=== PATIENT | female | born 1970 | race African-American/Black ===

== ENCOUNTER 2020-08-18 10:46 | Inpatient (IN) | payer OTHER ==
[~2020-08-18] VITALS: Ht 177.8 cm; Wt 81.6 kg
[~2020-08-18 10:46] MED LIST: ABILIFY 5 MG TAB5 M1 PO; AVELOX400 MG PO; BACTRIM DS TAB1 EACH; COMBIVIR TABLE1 EACH; DARVOCET-N 1001 EAC1 PO; IBUPROFEN 800800 MG PO; KEFLEX500 MG PO; NORCO 5-325 TA1 EACH PO; PAROXETINE HCL40 MG; PERCOCET 5-3251 EACH PO; PROAIR HFA8.5 GM IH; REMERON15 MG; RESTORIL30 MG; SUSTIVA600 MG; TYLENOL W/CODEI1 TA2 PO; XANAX XR2 MG
[2020-08-18 11:14] VITALS: BP 146/93
[2020-08-18 11:34] LABS: ABSOLUTE NEUTROPHILS 5.8 thou/uL (1.4-8.2); EOSINOPHILS 0.1 % (0.0-3.0); HEMATOCRIT 35.4 % (37.0-47.0); HEMOGLOBIN 12.3 gm/dL (12.0-15.0); LYMPHOCYTES 25.3 % (24.0-44.0); MCH 36.8 pg (26.0-34.0); MCHC 34.6 g/dL (28.0-37.0); MCV 106.1 fL (80.0-100.0); MONOCYTES 8.2 % (1.0-8.0); PLATELET COUNT 281 thou/uL (150-400); POLYS 65.4 % (36.0-66.0); RBC 3.33 mil/uL (4.20-5.00); RDW 13.1 % (10.5-14.5); WBC 8.8 thou/uL (4.0-11.0)
[2020-08-18 11:38] LABS: POTASSIUM 3.7 mmol/L (3.5-5.1)
[2020-08-18 11:44] LABS: ALBUMIN 3.6 g/dL (3.4-5.0); TOTAL BILIRUBIN 0.6 mg/dL (0.2-1.0); TOTAL PROTEIN 7.8 g/dL (6.4-8.2)
[2020-08-18 12:45] LABS: URINE BILIRUBIN NEGATIVE (Negative); URINE BLOOD 2+ (Negative); URINE CLARITY CLEAR; URINE COLOR YELLOW; URINE GLUCOSE-RANDOM* NEGATIVE (Negative); URINE KETONES TRACE (Negative); URINE LEUKOCYTES-REFLEX NEGATIVE (Negative); URINE NITRITE-REFLEX NEGATIVE (Negative); URINE PROTEIN (DIPSTICK) 2+ (Negative)
[2020-08-18 13:12] LABS: BACTERIA-REFLEX 1-9 Few /HPF (None Seen); CASTS None Seen /LPF (None Seen); MUCUS 0-3 Light strn/LPF (None Seen); SQUAMOUS 4-10 Moderate /LPF (0-3); URINE WBC-REFLEX 0-5 Rare /HPF (0-5)
[2020-08-18 13:13] LABS: CRYSTALS None Seen /LPF (None Seen)
--- NOTE | 2020-08-18 13:45 | EKG ---
[place] [address] [facility] [place] [address] ELECTROCARDIOGRAM REPORT Name: RASHAADPORFIRIO Lucio [facility] [id number] Admission: 08/18/20 Attend Phys: Discharge: Date of : 72 Report #: [id number] [facility] ED Test Date: 2020-08-18 Test Time: 10:57:02 Pat Name: PORFIRIO NEIL Department: Room: Gender: F Cloud Consultant: : 1970 Requested By: Ary Cervantes Order Number: [id number] MD: Chaka Story Measurements Intervals [place] Rate: 100 P: 51 MN: 151 QRS: 2 QRSD: 88 T: 40 QT: 325 QTc: 420 Interpretive Statements Sinus tachycardia RSR' in V1 or V2, probably normal variant Compared to ECG 04/21/2011 20:15:49 No significant changes Electronically Signed On 08-18-2020 13:44:55 CDT by Chaka Story [email or web address] <ELECTRONICALLY SIGNED> By: Chaka Story MD, [facility] 08/18/20 1344 [id number] [id number] Chaka Story MD, FACC /EPI
[2020-08-18 15:00] VITALS: BP 145/103
[2020-08-18 15:09] VITALS: BP 145/103
[2020-08-18 15:15] VITALS: BP 133/81
[2020-08-18 15:30] VITALS: BP 145/103
[2020-08-18] MEDS ORDERED: BIKTARVY 50-201 EACH PO (15:41)
[2020-08-18] MEDS ORDERED: MELATONIN10 M2 PO (15:42)
--- NOTE | 2020-08-18 17:03 | NUR ---
Pt transferred to unit from ED approx 1530. A&ox4. C/o non-cardiac chest pain. Provider notified and new orders noted. Admission completed. On 2L O2. Ptr is homeless at this time. Pt's mother listed as authorized contact. Call light within reach. Will continue to monitor.
[2020-08-18 19:29] VITALS: BP 179/101
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
[2020-08-19 05:15] VITALS: BP 136/84
[2020-08-19 06:14] LABS: HEMATOCRIT 32.9 % (37.0-47.0); HEMOGLOBIN 11.3 gm/dL (12.0-15.0); MCH 36.8 pg (26.0-34.0); MCHC 34.5 g/dL (28.0-37.0); MCV 106.5 fL (80.0-100.0); RBC 3.09 mil/uL (4.20-5.00); RDW 13.4 % (10.5-14.5); WBC 13.6 thou/uL (4.0-11.0)
[2020-08-19 08:18] VITALS: BP 144/92
--- NOTE | 2020-08-19 12:38 | NUR ---
Assumed care of pt at 0700. Pt a&ox4. C/o non-cardiac chest pain. Prn pain meds administered per pt request. IV antibiotics infusing. 2L O2. Home meds brought in by pt's family. Call light within reach. Will continue to monitor.
--- NOTE | 2020-08-19 13:49 | NUR ---
assessment: CM REVIEWED CHART AND MET WITH PT AT THE BEDSIDE. PT IS ALERT AND ORIENTED X4. PT WAS ADMITTED DUE TO PNEUMONIA AND IS CURRENTLY ON IV ANBX. PTS CULTURES ARE CURRENTLY PENDING. PT IS ON 2L OXYGEN BUT NORMALLY DOES NOT WEAR IT. (PT IS UNABLE TO GO TO [facility]ESS [facility] IF SHE IS REQUIRING OXYGEN). PT HAS PAST HX OF HIV AND REPORTS SHE GETS ALL HER FOLLOW UP CARE AT [facility] AND SEES DR. SHAMIKA ALFARO. PT REPORTS BEING FULLY INDEPENDENT WITH ADLS AND AMBULATION. PT REPORTS SHE IS NEEDING A PLACE TO STAY AT DISCHARGE. PT REPORTS SHE WAS JUST STAYING ANYWHERE SHE COULD PRIOR TO ADMISSION. CM DISCUSSED WITH PATIENT AND CAN MAKE ATTEMP TO GET HER INTO A [facility]ELESS [facility] AND PT IS AGREEABLE. CM CONTACTED [facility] IN ATTEMPTS TO SECURE A BED FOR PATIENT. PER STAFF PT HAS TO BE CLEARED BY THEIR RN JENAE GIPSON PRIOR TO ADMITTING THERE. CM SPOKE WITH KATHERINE EMANUEL AND PT IS CLEARED TO COME THERE IF A BED IS AVAILABLE AT TIME OF DISCHARGE. ZACH SPOKE WITH STAFF WHO REPORTS SHE CANNOT RESERVE A BED UNTIL THE DAY OF DISCHARGE AND THE BEST TIME TO CALL IS 0730. INTAKE FOR NEW PATIENTS IS USUALLY BETWEEN 1300-3PM. PT ALSO HAS A HX OF DRUG USE. PT DENIES ANY NEED FOR DRUG ABUSE RESOURCES AT THIS TIME. ONCE PATIENT IS MEDICALLY STABLE FOR DISCHARGE CM MUST CONTACT HELDER AT [facility] TO SEE IF BED IS OPEN ([phone]).
[2020-08-19 17:30] VITALS: BP 142/91
[2020-08-19] MEDS ORDERED: HYDROXYZINE HCL50 MG PO (19:14)
[2020-08-19] MEDS ORDERED: REMERON30 MG PO (19:14)
[2020-08-19] MEDS ORDERED: LATUDA60 MG PO (19:15)
[2020-08-19] MEDS ORDERED: SERTRALINE HCL100 MG PO (19:17)
[2020-08-19] MEDS ORDERED: MELATONIN10 M3 PO (19:18)
[2020-08-19] MEDS ORDERED: CELECOXIB200 MG PO (19:19)
[2020-08-19 19:44] VITALS: BP 144/93
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
--- NOTE | 2020-08-20 00:59 | NUR ---
PT ALERT AND ORIENTED X 4. 02 ON AT 2L PER NC. PT C/O NON-CARDIAC CHEST PAIN. MORPHINE GIVEN ORDERED. TEMP 101.3 AT START OF SHIFT. LOGAN DESOUZA NP NOTIFIED. TYLENOL GIVEN. LUNGS COARSE WITH NON-PRODUCTIVE COUGH NOTED. PT SOB WITH ACTIVITY. PT APPEARS TO BE SLEEPING ON HOURLY ROUNDS.
[2020-08-20 04:33] VITALS: BP 144/95
[2020-08-20 07:30] VITALS: BP 128/78
--- NOTE | 2020-08-20 10:04 | NUR ---
Assumed care of pt at 0700. Pt a&ox4. Continue to c/o non-cardiac chest pain regardless of pain medications administered. Provider notified. IV antibiotics infusing. Call light within reach. Will continue to monitor.
[2020-08-20 12:07] LABS: CD3 % 74.4 % (57.5-86.2); CD4 % 33.9 % (30.8-58.5); CD4:CD8 0.82 (0.92-3.72); CD8 % 41.1 % (12.0-35.5)
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
[2020-08-20 15:05] VITALS: BP 136/92
[2020-08-20 22:23] VITALS: BP 120/84
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
[2020-08-21 08:31] VITALS: BP 125/82
--- NOTE | 2020-08-21 12:46 | NUR ---
ON-GOING ASSESSMENT: CM REVIEWED CHART AND SPOKE WITH PT AT THE BEDSIDE. PT REMAINS ON OXYGEN AT THIS TIME AND DOES NOT HAVE IT ARRANGED OUTSIDE HOSPITAL. PULM HAS BEEN CONSULTED FOR PATIENT AND POSSIBLE NEED OF A BRONCH. PT REPORTS SHE STILL PLANS ON GOING TO HER NEPHEWS HOME AT DISCHARGE BUT MAY NEED A RIDE AT TIME OF DISCHARGE. IF PATIENT IS NEEDING TRANSPORTATION AT TIME OF DISCHARGE CM PLACED A CAB VOUCHER ON THE FRONT OF HER CHART THAT WILL NEED TO BE COMPELTED. PT HAS INSURANCE SO SHOULD BE ABLE TO FILL HER MEDICATIONS. CM WILL CONTINUE TO FOLLOW TO ASSIST NEEDED.
[2020-08-21 16:22] VITALS: BP 149/103
--- NOTE | 2020-08-21 17:45 | NUR ---
ASSUMED PATIENT CARE AROUND 0715. PT ALERT XORIENTED X 4. ON 2L/O2/NC.STAND BY ASSIST. WILL NOT CALL IF SHE NEEDS TO GOT TO THE BATHROOM.BRUISING OF LEFT EYE. COMPLAINTS OF NON CARDIAC CHEWT PAIN, PAIN RATING AT 1000'S OCCASIONALLY. PT WAS ANGRY TO DAY MORNING THAT HER HOME MEDICINES ARE NOT BEING GIVEN HERE AT THE HOSPITAL. RN LET KNOW ABOUT IT. MORPHINE GIVEN FOR PAIN AFTER 1400,ONE HOUR LATER ASKED FOR PAIN MEDICINE AGAIN SAYING HER PAIN LEVEL IS AT 9. HYDROCODONE WAS GIVEN AND IS SLEEPING NOW. FALL PRECAUTION IN PLACE, FALL EDUCATION GIVEN. WILL NOT CALL IF SHE IS GETTING OUT OF THE BED. WILL CONTINUE TO MONITOR.
[2020-08-21 20:00] VITALS: BP 131/90
--- NOTE | 2020-08-21 22:24 | NUR ---
PT HAS BEEN LAYING IN BED SINCE START OF SHIFT. I OBSERVED HER AT ONE TIME SEATED AT THE EDGE OF BED MAKING PHONE CALL, ADVISED PT TO CALL FOR HELP WHEN NEEDING TO GET UP BUT HE REFUSED. HE GOT MAD STATING HE IS NOT A FALL RISK. SO I LEFT IT AT THAT. BED ALARM ON FOR NOW. PT WANTED HS MEDS, ASKED WHAT THEY WERE-TOOK ALL AND SAID THANKS.PT ALSO NEEDING NORCO AND I TOLD HER WHEN IT IS DUE WHICH SHE IS FINE WITH. PT HAS A PRODUCTIVE COUGH, WITH GREYISH OUTPUT.AFEBRILE. WILL CONTINUE WITH POC TILL EOS.
[2020-08-22 02:30] VITALS: BP 158/97
[2020-08-22 08:41] VITALS: BP 132/87
[2020-08-22 15:46] VITALS: BP 123/73
--- NOTE | 2020-08-22 19:36 | NUR ---
Patient alert and orinted x4, on 2L nasal canula, vitals stable, and pain medication has been given per MAY. Call light with in reach. Will continue to monitor.
[2020-08-22 20:00] VITALS: BP 121/87
--- NOTE | 2020-08-23 02:06 | NUR ---
PT WAS OBSERVED LYING ON HER BED AT SHIFT CHANGE.PT WOKE UP IN THE MIDDLE OF REPORT AND STATED THAT SHE DOESN'T WANT HER BED ALARM SET.PT WAS EDUCATED ON THE FALL PROTOCOL HERE AT THE HOSPITAL,PT RECEPTIVE OF SETTING BED ALARM.ORDER NOTED FOR STAT CTA ABOUT [place] BY DR ANDERSON,LABS NEEDED BEFORE IT CAN BE DONE.[employer] ON DUTY NOTIFIED.GOT A CALL BACK FROM [employer] STATING THAT THE CT SCAN CAN BE DONE LATER IN AM PER DR KULKARNI.PT CONT ON 2L/NC.LEYE BRUISED.PT STILL COUGHING.CALL LIGHT WITHIN REACH.
[2020-08-23 05:05] LABS: ABSOLUTE NEUTROPHILS 2.7 thou/uL (1.4-8.2); BASOPHILS 0.5 % (0.0-2.0); EOSINOPHILS 2.2 % (0.0-3.0); HEMATOCRIT 32.5 % (37.0-47.0); HEMOGLOBIN 10.8 gm/dL (12.0-15.0); LYMPHOCYTES 38.9 % (24.0-44.0); MCHC 33.2 g/dL (28.0-37.0); MCV 108.3 fL (80.0-100.0); MONOCYTES 11.1 % (1.0-8.0); PLATELET COUNT 337 thou/uL (150-400); POLYS 47.3 % (36.0-66.0); RDW 13.2 % (10.5-14.5); WBC 5.7 thou/uL (4.0-11.0)
[2020-08-23 05:29] LABS: ALBUMIN 2.7 g/dL (3.4-5.0); CREATININE 0.7 mg/dL (0.6-1.0); MAGNESIUM 2.1 mg/dL (1.8-2.4); PHOSPHORUS 3.9 mg/dL (2.5-4.9); POTASSIUM 4.1 mmol/L (3.5-5.1); TOTAL BILIRUBIN 0.2 mg/dL (0.2-1.0); TOTAL PROTEIN 7.2 g/dL (6.4-8.2)
[2020-08-23 07:20] VITALS: BP 149/104
[2020-08-23 15:30] VITALS: BP 142/97
--- NOTE | 2020-08-23 18:39 | NUR ---
Assumed care of pt at 1100. Pt a&ox4. Pain controlled wtith prn pain meds. On 2L O2. SBA. IV antibiotics infusing. Call light within reach. Fall precautions in place. Will continue to monitor.
[2020-08-23 19:51] VITALS: BP 139/94
--- NOTE | 2020-08-24 03:15 | NUR ---
ASSESSMENT COMPLETED. PT STATES SHE FEELS ALOT BETTER. LESS COUGHING. SHE HAS BEEN CALM AND COOPEARATIVE. NORCO GIVEN ONCE AT BEDTIME AND SHE HAS BEEN SLEEPING SINCE. NO FURTHER CONCERNS.
[2020-08-24 04:42] VITALS: BP 133/81
[2020-08-24 08:14] VITALS: BP 117/83
[2020-08-24 11:05] LABS: HEMATOCRIT 34.5 % (37.0-47.0); HEMOGLOBIN 11.6 gm/dL (12.0-15.0)
[2020-08-24 11:20] LABS: % SATURATION 17 % (20-39); IRON 53 ug/dL (50-170); TIBC 303 ug/dL (250-450)
--- NOTE | 2020-08-24 11:22 | NUR ---
Assumed care of pt at 0700. Pt a&ox4. Pain controlled with prn pain meds. Walking pulse ox performed by RT. Supplemental oxygen no longer needed. CT head done this am. Pt states she is feeling better. Ambulated in the halls. Call light within reach. Fall precautions in place. Will continue to monitor.
--- NOTE | 2020-08-24 13:02 | NUR ---
on-going assessment: CM REVIEWED CHART AND MET WITH PATIENT AT THE BEDSIDE. PT WAS ON 2L OXYGEN AND ABLE TO BE WEANED OFF. PER ATTENDING PT STATED SHE CAN GO STAY WITH HER NEPHEW AT DISCHARGE BUT NOW UNTIL MONDAY. CM MET WITH PATIENT AT THE BEDSIDE AND PT REPORTS SHE CAN GO TO HER NEPHEWS EVEN TOMORROW IF NEEDED FOR DISCHARGE AND DOES NOT HAVE TO WAIT UNTIL MONDAY. PT REPORTS SHE MAY JUST NEED ASSISTANCE WITH A CAB RIDE. CM WILL CONTINUE TO FOLLOW TO ASSIST NEEDED.
--- NOTE | 2020-08-24 16:39 | NUR ---
Assumed care from KATHERINE Brice at 1300. Received awake on bed. Due medications given as prescribed, able to swallow meds w/o difficulty. On room air. Vital signs stable. On MS, not on telemetry; no complains and signs of chest pain, crushing sensation and heaviness. Assisted in ADLs. On regular diet- tolerating well; no nausea, no vomiting and no abdominal pain noted. Continent of bowel and bladder. A/W IV team to re-insert peripheral IV, as per previous RN pt difficult stick; IV nurse came this PM and inserted IV at L FA. Complained of pain, due PRN pain meds given as prescribed. To continue monitoring patient.
[2020-08-24 17:51] VITALS: BP 130/89
[2020-08-24 19:19] VITALS: BP 137/90
--- NOTE | 2020-08-25 04:25 | NUR ---
ASSESSMENT COMPLETED. PT SLEEPING MOST OF THE SHIFT. GOT ANXIOUS AT HS WANTING MEDS AND COULD NOT WAIT. SHE WAS PACING AROUND TALKING ON THE PHONE. ONCE I WENT TO HER ROOM SHE APPEARED QUIET AND APPRECIATIVE. MEDS TAKEN WITH NO DIFFICULTIES. REMAINS ON ROOM AIR. AFEBRILE. LESS COUGHING. LOOKING AND DOING BETTER OVERALL. PROGRESSING TOWARDS CARE GOALS.
[2020-08-25 04:29] VITALS: BP 129/83
[2020-08-25 09:05] VITALS: BP 126/88
[2020-08-25] MEDS ORDERED: AMOX TR-K CLV1 EAC4 PO (11:08)
[2020-08-25 11:23] VITALS: BP 126/88
--- NOTE | 2020-08-25 11:56 | NUR ---
Assumed care of pt at 0700. Pt a&ox4. Clear lung sounds. On room air. Pt will discharge to home. Home meds recovered from pharmacy and handed to patient.
--- NOTE | 2020-08-25 12:57 | NUR ---
on-going assessment: CM REVIEWED CHART AND SPOKE WITH PATIENT AT THE BEDSIDE. PT HAS ORDERS TO DISCHARGE HOME TODAY. PT REPORTS SHE WILL BE STAYING WITH HER NEPHEW AT DISCHARGE AND REPORTS HER MOTHER IS COMING TO PICK HER UP. PT REQUEST TO HAVE HER NEW RX FILLED HERE TO SEE IF THERE IS A COPAY. ZACH FAXED RX FOR AUGMENTIN DOWN TO [facility] AND THERE IS NO COPAY. CM NOTIFIED BEDSIDE RN. PT REPORTS NO FURTHER NEEDS FROM ZACH AT THIS TIME.
== END 2020-08-25 13:14 | disposition home or self-care (01) | DRG 177 ==
LOC: ER 10:46 → 4S 14:48 → EROBS 14:48 → 4S 15:19
PROVIDERS: Internal Medicine; Physician Assistant; Specialist; ADMIT Hospitalist; ATTEND Hospitalist
DX: J69.0 Pneumonitis due to inhalation of food and vomit (principal); J96.01 Acute respiratory failure with hypoxia; F17.210 Nicotine dependence, cigarettes, uncomplicated; F14.10 Cocaine abuse, uncomplicated; F41.9 Anxiety disorder, unspecified; F32.9 Major depressive disorder, single episode, unspecified; S00.12XA Contusion of left eyelid and periocular area, initial encounter; S09.93XA Unspecified injury of face, initial encounter; S29.9XXA Unspecified injury of thorax, initial encounter; D64.9 Anemia, unspecified; E04.1 Nontoxic single thyroid nodule; I10 Essential (primary) hypertension; X58.XXXA Exposure to other specified factors, initial encounter; Z21 Asymptomatic human immunodeficiency virus [HIV] infection status; Z20.822 Contact with and (suspected) exposure to COVID-19; Z79.899 Other long term (current) drug therapy; Z72.89 Other problems related to lifestyle; Y93.89 Activity, other specified; Y92.89 Other specified places as the place of occurrence of the external cause; Y99.8 Other external cause status
CPT/HCPCS: 10195